=== PATIENT | male | born 2000 | race Caucasian/White ===

== ENCOUNTER 2020-10-13 17:40 | Emergency (ER) | payer SELFPAY ==
[~2020-10-13] VITALS: Ht 172.7 cm; Wt 64.0 kg
[2020-10-13] MEDS ORDERED: BACTRIM DS1 TAB PO (18:29)
[2020-10-13 18:37] VITALS: BP 115/72
== END 2020-10-13 18:37 | disposition home or self-care (01) | DRG 603 ==
LOC: ED 17:40
DX: L03.113 Cellulitis of right upper limb (principal); L03.313 Cellulitis of chest wall; F17.210 Nicotine dependence, cigarettes, uncomplicated

== ENCOUNTER 2020-10-16 19:04 | Emergency (ER) | payer SELFPAY ==
[~2020-10-16] VITALS: Ht 172.7 cm; Wt 63.0 kg
[~2020-10-16 19:04] MED LIST: BACTRIM DS1 TAB PO
[2020-10-16 19:22] VITALS: BP 123/65
[2020-10-16] MEDS ORDERED: KEFLEX500 M1 PO (19:35)
[2020-10-16] MEDS ORDERED: BACTROBAN TOP (19:35)
== END 2020-10-16 20:10 | disposition home or self-care (01) | DRG 603 ==
LOC: ED 19:04
DX: L02.413 Cutaneous abscess of right upper limb (principal); L03.113 Cellulitis of right upper limb; L01.00 Impetigo, unspecified; B95.62 Methicillin resistant Staphylococcus aureus infection as the cause of diseases classified elsewhere; F17.200 Nicotine dependence, unspecified, uncomplicated

== ENCOUNTER 2021-07-20 11:46 | Emergency (ER) | payer SELFPAY ==
[~2021-07-20] VITALS: Ht 172.7 cm; Wt 63.5 kg
[~2021-07-20 11:46] MED LIST changes: +BACTROBAN TOP; +KEFLEX500 M1 PO
[2021-07-20 14:07] VITALS: BP 119/81
== END 2021-07-20 14:07 | disposition home or self-care (01) | DRG 951 ==
LOC: ED 11:46
DX: Z20.822 Contact with and (suspected) exposure to COVID-19 (principal); F17.210 Nicotine dependence, cigarettes, uncomplicated

== ENCOUNTER 2022-01-08 15:14 | Emergency (ER) | payer SELFPAY ==
[~2022-01-08] VITALS: Ht 172.7 cm; Wt 60.7 kg
[2022-01-08] MEDS ORDERED: CEPHALEXIN500 MG PO (17:48)
[2022-01-08] MEDS ORDERED: BACTRIM DS1 TAB PO (17:48)
[2022-01-08 18:10] VITALS: BP 113/77
== END 2022-01-08 18:10 | disposition home or self-care (01) | DRG 603 ==
LOC: ED 15:14
DX: L03.116 Cellulitis of left lower limb (principal); F41.9 Anxiety disorder, unspecified; F32.A Depression, unspecified; F17.290 Nicotine dependence, other tobacco product, uncomplicated

== ENCOUNTER 2022-09-03 14:04 | Emergency (ER) | payer SELFPAY ==
[~2022-09-03] VITALS: Ht 172.7 cm; Wt 62.8 kg
[~2022-09-03 14:04] MED LIST changes: +CEPHALEXIN500 MG PO
[2022-09-03 16:28] VITALS: BP 119/74
[2022-09-03 16:30] VITALS: BP 120/69
[2022-09-03] MEDS ORDERED: AMOXICILLIN500 M2 PO (16:37)
[2022-09-03 16:45] VITALS: BP 119/75
[2022-09-03 16:48] VITALS: BP 119/75
== END 2022-09-03 16:54 | disposition home or self-care (01) | DRG 159 ==
LOC: ED 14:04
DX: K08.89 Other specified disorders of teeth and supporting structures (principal); F41.9 Anxiety disorder, unspecified; F32.A Depression, unspecified; F17.200 Nicotine dependence, unspecified, uncomplicated

== ENCOUNTER 2023-02-18 00:34 | Emergency (ER) | payer BC ==
[~2023-02-18] VITALS: Ht 172.7 cm; Wt 63.0 kg
[~2023-02-18 00:34] MED LIST changes: +AMOXICILLIN500 M2 PO
[2023-02-18] MEDS ORDERED: PERCOCET 5/325M1 TAB PO (01:39)
[2023-02-18] MEDS ORDERED: METHOCARBAMOL500 MG PO (01:39)
[2023-02-18] MEDS ORDERED: LOVENOX30 MG/0.3 SC (01:40)
[2023-02-18 02:26] LABS: BASO% 0.5 % (0-3); EOS% 1.6 % (0-8); HEMATOCRIT 32.4 % (39.0-50.0); HEMOGLOBIN 10.6 g/dl (14.0-18.0); LYMPH% 20.4 % (15-41); MEAN CORPUSCULAR HGB 31.5 pG CALC (26.0-32.0); MEAN CORPUSCULAR HGB CONC 32.7 g/dL CAL (32.0-36.0); MONO% 9.2 % (2-13); NEUT# 6.95 thou/uL (1.82-7.42); NEUT% 67.3 % (42-76); RED BLOOD COUNT 3.37 mill/uL (4.70-6.10)
[2023-02-18 02:30] LABS: MEAN CELL VOLUME 96.1 fL CALC (80.0-100.0)
[2023-02-18 02:41] LABS: ALBUMIN 3.6 g/dL (3.2-5.0); ALKALINE PHOSPHATASE 201 u/l (38-126); ANION GAP 10 (6-22 (CALC)); BILIRUBIN, TOTAL 0.4 mg/dL (0.2-1.3); BUN 11 mg/dL (9-20); BUN/CREATININE RATIO 16 (12-20 (CALC)); CARBON DIOXIDE 29 mmol/l (22-30); CHLORIDE 103 mmol/l (95-108); CREATININE 0.7 mg/dL (0.7-1.3); GFR FOR AFR.AMER. > 60 ML/MIN (>=60 (CALC)); GFR OTHER RACES > 60 ML/MIN (>=60 (CALC)); POTASSIUM 3.8 mmol/l (3.5-5.1); SGOT/AST 47 u/l (17-59); SODIUM 138 mmol/l (137-146); TOTAL PROTEIN 6.8 g/dL (6.3-8.2)
[2023-02-18] MEDS ORDERED: PERCOCET 10/31 COMBO PO ×2 (03:08→13:15)
[2023-02-18 03:36] LABS: URINE BILIRUBIN - DIPSTICK NEGATIVE (NEGATIVE); URINE BLOOD DIPSTICK NEGATIVE (NEGATIVE); URINE COLOR YELLOW; URINE GLUCOSE - DIPSTICK NEGATIVE (NEGATIVE); URINE KETONE NEGATIVE (NEGATIVE); URINE LEUK ESTERASE NEGATIVE (NEGATIVE); URINE PH 6.5 (4.5-8.0); URINE PROTEIN - DIPSTICK NEGATIVE (NEG-TRACE); URINE UROBILINOGEN - DIPSTICK 0.2 E.U./dL (0.2)
[2023-02-18 03:37] LABS: URINE NITRITE - DIPSTICK NEGATIVE (Negative)
[2023-02-18 03:52] VITALS: BP 124/77
== END 2023-02-18 04:10 | disposition home or self-care (01) | DRG 556 ==
LOC: ED 00:34
PROVIDERS: Emergency Medicine
DX: M79.605 Pain in left leg (principal)

== ENCOUNTER 2023-03-06 19:01 | Emergency (ER) | payer BC ==
[~2023-03-06] VITALS: Ht 172.7 cm; Wt 59.8 kg
[~2023-03-06 19:01] MED LIST changes: +LOVENOX30 MG/0.3 SC; +METHOCARBAMOL500 MG PO; +PERCOCET 10/31 COMBO PO; +PERCOCET 5/325M1 TAB PO
[2023-03-06 19:27] VITALS: BP 117/61
== END 2023-03-06 19:49 | disposition home or self-care (01) | DRG 951 ==
LOC: ED 19:01
DX: Z48.00 Encounter for change or removal of nonsurgical wound dressing (principal)

== ENCOUNTER 2023-08-10 23:25 | Emergency (ER) | payer OTHER ==
[~2023-08-10] VITALS: Ht 172.7 cm; Wt 59.0 kg
[2023-08-10] MEDS ORDERED: GENTAMICIN0.3 % OU (23:55)
[2023-08-11 00:10] VITALS: BP 131/85
== END 2023-08-11 00:10 | disposition home or self-care (01) ==
LOC: ED 23:25
DX: H10.9 Unspecified conjunctivitis (principal); F41.9 Anxiety disorder, unspecified; F32.A Depression, unspecified; F17.290 Nicotine dependence, other tobacco product, uncomplicated

== ENCOUNTER 2025-02-19 15:16 | Emergency (ER) | payer OTHER ==
[~2025-02-19] VITALS: Ht 172.7 cm; Wt 59.0 kg
[2025-02-19] VITALS (7 sets, daily range): BP systolic 89–136; BP diastolic 45–79
[~2025-02-19 15:16] MED LIST changes: +GENTAMICIN0.3 % OU
[2025-02-19] MEDS ORDERED: KETOROLAC TROMETHAMINE 30 MG/ML SDV IV ONE (16:00)
[2025-02-19] MEDS ORDERED: METOCLOPRAMIDE HCL 10 MG/2 ML SDV IV ONE (16:00)
[2025-02-19] MEDS ORDERED: SODIUM CHLORIDE 0.9% 1,000 ML IV ONE (16:00)
[2025-02-19] MEDS ORDERED: DiphenhydrAMINE HCL 50 MG/ML SDV IV ONE (16:00)
[2025-02-19 16:14] LABS: BASO% 0.3 % (0-3); IMMATURE GRANULOCYTES 0.2 % (0.0-5.0); LYMPH% 11.8 % (15-41); MEAN CORPUSCULAR HGB 31.4 pG CALC (26.0-32.0); MEAN CORPUSCULAR HGB CONC 34.9 g/dL CAL (32.0-36.0); NEUT# 8.71 thou/uL (1.82-7.42); NEUT% 78.7 % (42-76); RED BLOOD COUNT 4.75 mill/uL (4.70-6.10); RED CELL DISTRI WIDTH 11.9 % (11.5-15.5)
[2025-02-19 16:15] LABS: HEMATOCRIT 42.7 % (39.0-50.0); HEMOGLOBIN 14.9 g/dl (14.0-18.0); MEAN CELL VOLUME 89.9 fL CALC (80.0-100.0)
[2025-02-19 16:29] LABS: ALBUMIN 4.1 g/dL (3.2-5.0); BILIRUBIN, TOTAL 0.5 mg/dL (0.2-1.3); CREATININE 0.9 mg/dL (0.7-1.3); POTASSIUM 4.3 mmol/l (3.5-5.1); TOTAL PROTEIN 6.9 g/dL (6.3-8.2)
[2025-02-19] MEDS ORDERED: VIBRAMYCIN100 M2 PO (18:38)
[2025-02-19] MEDS ORDERED: AZELASTINE HCL0.1 % (18:38)
[2025-02-19] MEDS ORDERED: MEDDOSEPAK PO (18:38)
[2025-02-19] MEDS ORDERED: FLOXIN OTIC0.3 % AD (18:38)
[2025-02-19] MEDS ORDERED: LEVOCETIRIZINE D5 MG PO (18:38)
== END 2025-02-19 18:54 | disposition home or self-care (01) | DRG 153 ==
LOC: ED 15:16
PROVIDERS: Nurse Practitioner
DX: J32.9 Chronic sinusitis, unspecified (principal); H65.91 Unspecified nonsuppurative otitis media, right ear; H72.91 Unspecified perforation of tympanic membrane, right ear; F41.9 Anxiety disorder, unspecified; F32.A Depression, unspecified; F17.290 Nicotine dependence, other tobacco product, uncomplicated
CPT/HCPCS: J1200; J2765